=== PATIENT | female | born 1960 | race Caucasian/White ===

== ENCOUNTER → 2017-02-07 | Outpatient (CLI) | payer MEDICARE, MEDICAID ==
[~2017-02-07] MED LIST: COLACE100 MG PO; CYMBALTA30 MG PO; CYMBALTA60 MG PO; DILAUDID2 MG PO; MIRALAX17 GM PO; NEURONTIN800 MG PO; PRILOSEC20 MG PO; PRINIVIL (ZESTR20 MG PO; TOPROL XL100 MG PO; TYLENOL325 MG PO; ZANAFLEX4 M2 PO
[2017-02-07 14:22] LABS: CREATININE 0.8 mg/dL (0.5-1.1)
== END | disposition disaster alternative care site (69) ==
LOC: GLAB 13:30 → GRAD 14:30
PROVIDERS: Orthopaedic Surgery
DX: S13.4XXA Sprain of ligaments of cervical spine, initial encounter (principal); M79.602 Pain in left arm; M79.601 Pain in right arm; R53.1 Weakness; M43.22 Fusion of spine, cervical region; M25.78 Osteophyte, vertebrae
CPT/HCPCS: A9577

== ENCOUNTER 2017-02-08 09:23 | Inpatient (IN) | payer MEDICARE, MEDICAID ==
[~2017-02-08] VITALS: Ht 170.2 cm; Wt 116.9 kg
--- NOTE | ~2017-02-08 | DS ---
PATIENT'S NAME: JAMIE SURESH [facility] AGE: 56 Y [address] ROOM: [address] [place], [place] [address] [place] [facility] [place] DATE: 02/10/2017 Discharge Summary DISCHARGE DATE: 02/16/2017 FAMILY PHYSICIAN: Dakota Emmanuel MD ATTENDING PHYSICIAN: Panfilo Harp FINAL DIAGNOSES: 1. Intractable back pain with radicular neuropathic pain to the lower extremities. 2. Essential hypertension. 3. Anxiety and depression. 4. Morbid obesity. 5. Obstructive sleep apnea, noncompliant with CPAP. CONSULTANTS ON THE CASE: 1. Dr. Crispin Mae, Psychiatry. 2. Dr. Glen Malave, Orthopedics. 3. Dr. Umana, Neurology. 4. The patient was seen extensively by Physical and Occupational Therapy throughout her stay as well. HOSPITAL COURSE: Please see details of admission in H and P by Dr. Harp. Briefly, the patient was admitted secondary to her uncontrolled pain. Dr. Glen Malave was quite familiar with the patient and had been managing her pain pump and was asked to see the patient. We did start her on IV Dilaudid, Valium, and started Neurontin. Dr. Malave agreed with this management. He questioned whether there was a pump failure secondary to her uncontrolled quick onset of her pain. Did recommend doing a pump program while hospitalized. Neurology was also consulted secondary to the nature of her pain that it may be an underlying neurologic disorder. They were able to see and evaluate the patient on 02/14/2017, really could not pinpoint any acute neurological deficits and purely felt like it was a sensory issue. The patient did undergo trigger point injections on 02/14/2017. This may have helped with her pain slightly. We also did switch her over to oral Dilaudid and got the pump program started on 02/15/2017. On 02/16/2017, the patient was feeling better with oral Dilaudid and felt like she could discharge home. She was educated on use of her pump as well as oral medications and new medications that she had been started on. The patient did have difficulty with accelerated hypertension throughout her stay and was started on lisinopril 20 mg daily. She was instructed to hold this if her systolic blood pressure gets less than 110 and verbalized understanding of these instructions. DIAGNOSTICS: Two-view of the cervical spine shows interbody fusions at C3-C4, C4-C5, C5-C6, and C6-C7. No acute fractures or soft tissue abnormality is noted. Alignment was anatomic. PATIENT'S NAME: JAMIE SURESH [facility] AGE: 56 Y [address] ROOM: [place] [address] [place] [facility] [place] DATE: 02/10/2017 Discharge Summary DISCHARGE DATE: 02/16/2017 FAMILY PHYSICIAN: Dakota Emmanuel MD ATTENDING PHYSICIAN: Panfilo Harp MRI of the cervical spine with and without contrast noted that chronic ACDF spanning C3 through C7. Pseudarthrosis suspected at C3 and C4, possibly C6 and C7. C3-C4 has disk osteophyte prominence posterior left, resulting in stenosis of the left half of the canal and severe left foraminal stenosis. MRI of the brain shows nonspecific white matter changes. No acute findings. LABORATORY DATA: Laboratory data was unremarkable through her stay. She did have a CPK of 46. Sedimentation rate was 52. DISCHARGE INSTRUCTIONS: The patient is discharged home. She will follow up with Dr. Emmanuel in 1 week. She will follow up with Dr. Malave on February 21 at 11:30. Her diet is as tolerated. Activity is as tolerated. Recommend continuing outpatient physical and occupational therapies. She is to have a polysomnograph and CPAP titration done as an outpatient. She is to have a nuclear med followup scan for pump program on 02/19/2017, and she has discussed pump boluses with Dr. Malave prior to using. DISCHARGE MEDICATIONS: 1. Colace 100 mg twice daily. 2. Cymbalta 60 mg daily. 3. Cymbalta 30 mg at bedtime. 4. Neurontin 800 mg 3 times daily. 5. Lisinopril 20 mg daily. 6. Metoprolol 150 mg daily. 7. MiraLAX 17 g daily. 8. Tylenol 650 mg every 4 hours as needed for pain. 9. Dilaudid 2 mg every 4 hours as needed for pain. 10. Omeprazole 20 mg daily. 11. Zanaflex 4 to 8 mg every night at bedtime as needed. We do appreciate participating in this patient's care, and thank you very much for the ability to serve her while hospitalized at [facility]. Time spent coordinating details of discharge was 37 minutes which was spent consulting with consulting physicians, coordinating with care management, and completion of medication reconciliation, and education to the patient and family on the above-mentioned diagnoses. DENNIS PA FOR PANFILO HARP MD PATIENT'S NAME: JAMIE SURESH [facility] AGE: 56 Y [address] ROOM: [place] [address] [place]: [facility] [place]MIT DATE: 02/10/2017 Discharge Summary DISCHARGE DATE: 02/16/2017 FAMILY PHYSICIAN: Dakota Emmanuel MD ATTENDING PHYSICIAN: Panfilo Harp/aleshal /[id number] d: 02/17/17 0353 t: 02/20/17 1556, DISCHARGE SUMMARY
--- NOTE | ~2017-02-08 | HP ---
PATIENT'S NAME: JAMIE SURESH [facility] AGE: 56 Y [address] ROOM: [place] [address] LOCATION: [facility] [place] ADMIT DATE: 02/08/2017 History & Physical DISCHARGE DATE: FAMILY PHYSICIAN: Dakota Emmanuel MD ATTENDING PHYSICIAN: PANFILO LANGFORD DATE OF SERVICE: CHIEF COMPLAINT: Intractable lower extremity neuropathic pain, unsteady gait. HISTORY OF PRESENT ILLNESS: This is a 56-year-old female with a history of problems with back pain, status post a few spinal fusion surgeries, well known to Dr. Malave from [facility], who presents today with severe bilateral lower extremity burning type pain. The patient reports that she woke up from her sleep with this burning type pain, and she went to emergency room in [place] this morning and got a few medications and left, but did not improve, so she returned to the emergency room here. Of note, the patient had seen Dr. Malave yesterday for the followup and managing her pain pump that she uses for her back pain issues, and she was reportedly doing well yesterday and this kind of came out of nowhere. The patient otherwise denies any numbness, tingling, or weakness of her extremities. She is able to get up and walk except for the severe pain, and she does have unsteady gait when she tries to walk. The patient otherwise denies any chest pain, shortness of breath, dizziness, lightheadedness. She denies any urinary incontinence, urgency, frequency type symptoms as well. PAST MEDICAL HISTORY: 1. Chronic back pain. 2. Essential hypertension. 3. Morbid obesity. FAMILY HISTORY: The patient has history of diabetes in her siblings as well as in her mother. She has a family history of multiple sclerosis as well. SOCIAL HISTORY: The patient has a remote history of smoking, but has quit over 15 year ago. Denies any alcohol or drug use. REVIEW OF SYSTEMS: All systems have been reviewed and were all negative except as described in the HPI. PHYSICAL EXAMINATION: PATIENT'S NAME: JAMIE SURESH [facility] AGE: 56 Y [address] ROOM: [place] [address] LOCATION: [facility] [place] ADMIT DATE: 02/08/2017 History & Physical DISCHARGE DATE: FAMILY PHYSICIAN: Dakota Emmanuel MD ATTENDING PHYSICIAN: PANFILO LANGFORD VITAL SIGNS: Reviewed and stable, afebrile. GENERAL: The patient is in moderate distress from pain in her legs, however, awake, alert, and oriented x3. HEENT: Moist mucous membranes. No scleral icterus, conjunctival pallor noted. SKIN: Without rash or lesions. CHEST: Clear to auscultation bilaterally. HEART: S1, S2. Regular rate and rhythm. ABDOMEN: Soft, nontender, and nondistended. EXTREMITIES: Without edema. NEURO: No focal neurological deficits noted. MUSCULOSKELETAL: No joint effusion, edema, or weakness of muscles noted. ASSESSMENT AND PLAN: 1. Intractable lower extremity neuropathic pain. The patient does have a history of this on and off, but at this time states that this is the worse she has ever felt. She does not report any weakness or any focal neurological deficits. The patient did have recent MRI of her brain as well as MRI of her spine with multiple nonspecific symptoms but nothing acute was observed. At this point, we will manage conservatively and treat her pain. I will start her on Neurontin 500 mg b.i.d. and this could be up titrated as the pain is mostly neuropathic in nature. We will also put her on some Valium p.r.n. q.6 hours as needed for her back pain issues. 2. Unsteady gait. This is mostly related to her nonchronic back pain issues. We will have PT, OT evaluate the patient. She did have an MRI again today, which per emergency room report showed nonspecific white matter changes. It is recommended that she follows up with Neurology as an outpatient. The patient does report extensive history of multiple sclerosis in her family. Her current presentation is not quite suggestive of that anyway. 3. Essential hypertension. We will continue the patient's home medications. 4. Morbid obesity. She would benefit from significant lifestyle modifications and weight loss, and this will help her back pain issues as well. 5. Intractable pain. Management as above. I will have Dr. Malave see the patient while in-house. MD MANDA THEODORE/modl PATIENT'S NAME: JAMIE SURESH [facility] AGE: 56 Y [address] ROOM: [address] [address] LOCATION: [facility] [place] ADMIT DATE: 02/08/2017 History & Physical DISCHARGE DATE: FAMILY PHYSICIAN: Dakota Emmanuel MD ATTENDING PHYSICIAN: PANFILO LANGFORD /[id number] D: [id number] T: [id number] HISTORY & PHYSICAL
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
[2017-02-08] MEDS ORDERED: ZANAFLEX4 M2 PO (17:53)
[2017-02-08] MEDS ORDERED: TOPROL XL100 MG PO (17:54)
[2017-02-08] MEDS ORDERED: CYMBALTA60 MG PO (17:54)
[2017-02-08] MEDS ORDERED: PRILOSEC20 MG PO (17:56)
[2017-02-09 14:35] LABS: BASOPHIL # 0.1 K/uL (0.0-0.2); EOSINOPHIL # 0.2 K/uL (0.0-0.5); HEMOGLOBIN 14.2 g/dL (10.0-15.0); IMMATURE GRANULOCYTE % 0.4 %; LYMPHOCYTE # 2.3 K/uL (0.8-4.0); LYMPHOCYTE % 28.4 %; MCH 29.8 pg (27.0-34.0); MCHC 31.6 gm/dL (32.0-36.5); MCV 94.5 fl (83.0-98.0); MONOCYTE # 0.7 K/uL (0.0-1.0); MONOCYTE % 8.2 %; MPV 10.2 fl (9.4-12.4); NEUTROPHIL # (ANC) 4.9 K/uL (1.8-7.8); NRBC % 0 /100WBC (0-0.00); PLATELET COUNT 291 K/uL (150-450); RDW-CV 13.4 % (11.9-14.6); WBC 8.2 K/uL (4.0-11.0)
[2017-02-09 14:37] LABS: RBC 4.76 M/uL (3.50-5.50)
[2017-02-09 14:45] LABS: ANION GAP 9.2 (10.0-19.0); BLOOD UREA NITROGEN 12 mg/dL (6-24); CALCIUM 9.5 mg/dL (8.5-10.5); CHLORIDE 111 mMol/L (96-110); CO2 25 mMol/L (22-32); CREATININE 0.7 mg/dL (0.5-1.1); POTASSIUM 4.2 mMol/L (3.7-5.1); SODIUM 141 mMol/L (135-145)
[2017-02-12 04:54] LABS: ANION GAP 10.3 (10.0-19.0); BLOOD UREA NITROGEN 15 mg/dL (6-24); CALCIUM 9.6 mg/dL (8.5-10.5); CHLORIDE 108 mMol/L (96-110); CO2 28 mMol/L (22-32); CREATININE 0.7 mg/dL (0.5-1.1); POTASSIUM 4.3 mMol/L (3.7-5.1); SODIUM 142 mMol/L (135-145)
[2017-02-13 13:44] LABS: CREATININE 0.8 mg/dL (0.5-1.1)
[2017-02-16] MEDS ORDERED: COLACE100 MG PO (16:19)
[2017-02-16] MEDS ORDERED: NEURONTIN800 MG PO (16:20)
[2017-02-16] MEDS ORDERED: CYMBALTA30 MG PO (16:20)
[2017-02-16] MEDS ORDERED: PRINIVIL (ZESTR20 MG PO (16:23)
[2017-02-16] MEDS ORDERED: MIRALAX17 GM PO (16:24)
[2017-02-16] MEDS ORDERED: TYLENOL325 MG PO (16:24)
[2017-02-16] MEDS ORDERED: DILAUDID2 MG PO (16:25)
== END 2017-02-16 17:45 | disposition disaster alternative care site (69) | DRG 74 ==
LOC: GMED 09:23 → GMSU 15:27
PROVIDERS: Family Medicine; Nurse Practitioner Family; ADMIT Internal Medicine
DX: G57.83 Other specified mononeuropathies of bilateral lower limbs (principal); Z68.41 Body mass index [BMI] 40.0-44.9, adult; I10 Essential (primary) hypertension; E66.01 Morbid (severe) obesity due to excess calories; R26.81 Unsteadiness on feet; G89.29 Other chronic pain; M54.2 Cervicalgia; G47.33 Obstructive sleep apnea (adult) (pediatric); Z82.69 Family history of other diseases of the musculoskeletal system and connective tissue; Z98.1 Arthrodesis status; Z96.89 Presence of other specified functional implants; Z87.891 Personal history of nicotine dependence; M48.02 Spinal stenosis, cervical region; Z91.19 Patient's noncompliance with other medical treatment and regimen; F32.9 Major depressive disorder, single episode, unspecified; F41.9 Anxiety disorder, unspecified
CPT/HCPCS: A9548; G0378; J1170; J1650; J3360

== ENCOUNTER → 2017-02-19 | Outpatient (CLI) | payer MEDICARE, MEDICAID | END | disposition disaster alternative care site (69) | LOC: GRAD 08:56 | DX: M54.16 Radiculopathy, lumbar region (principal); I10 Essential (primary) hypertension; F41.8 Other specified anxiety disorders; E66.01 Morbid (severe) obesity due to excess calories; G47.33 Obstructive sleep apnea (adult) (pediatric) ==